=== PATIENT | male | born 1980 | race Two or more races ===

== ENCOUNTER 2017-09-13 15:50 | Emergency (ER) | payer OTHER ==
[~2017-09-13] VITALS: Ht 167.6 cm; Wt 56.7 kg
[2017-09-13] MEDS ORDERED: IBUPROFEN 600 MG TABLET PO ONE ×2 (16:30→16:33)
[2017-09-13 17:58] VITALS: BP 129/75
== END 2017-09-13 18:05 | disposition home or self-care (01) ==
LOC: ER 15:52
DX: S66.912A Strain of unspecified muscle, fascia and tendon at wrist and hand level, left hand, initial encounter (principal); M10.9 Gout, unspecified; F10.20 Alcohol dependence, uncomplicated; F17.200 Nicotine dependence, unspecified, uncomplicated; V43.52XA Car driver injured in collision with other type car in traffic accident, initial encounter; Y93.89 Activity, other specified; Y92.410 Unspecified street and highway as the place of occurrence of the external cause; Y99.8 Other external cause status
CPT/HCPCS: 29125; 73110; 99284; 99406; A4606; Z7610